=== PATIENT | male | born 1990 | race Caucasian/White ===

== ENCOUNTER 2016-12-28 15:20 | Emergency (ER) | payer MEDICAID, OTHER ==
[~2016-12-28] VITALS: Ht 175.3 cm; Wt 85.0 kg
[~2016-12-28 15:20] MED LIST: DICL75 PO; Z.0.NO CURRENT MEDS
[2016-12-28 15:30] VITALS: BP 124/88; PULSE 91; RESP 16; TEMP 98.4; O2SAT 94
--- NOTE | 2016-12-28 16:47 | PD ---
HPI Chief Complaint: Skin Problem Time Seen by Provider: 16:47 Travel History International Travel<30 days: No Contact w/Intl Traveler<30days: No Traveled to known affect area: No History of Present Illness HPI 26-year-old male presents to the ED for evaluation 3 day history of right-sided burning, pustular rash. Patient states the rash was preceded by one week history of burning pain in the area. He denies fevers, chills. He endorses previous history of varicella infection. Denies history of oral/genital herpes. Denies fevers, chills, chest pain, shortness breath, abdominal pain, nausea, vomiting, dysuria, penile discharge, back pain. No treatment attempted at home. PFSH Past Medical History Medical History: Denies Significant Hx Tetanus Vaccination: > 5 Years Influenza Vaccination: No Past Surgical History Surgical History: No Previous Surgery Social History Alcohol Use: Yes (SOCIAL) Tobacco Use: No Substance Use: No Allergies-Medications (Allergen,Severity, Reaction): Coded Allergies: No Known Allergies (Unverified , 12/28/16) Reported Meds & Prescriptions Reported Meds & Active Scripts Active Ibuprofen 800 Mg Tab 800 Mg PO Q8H PRN Acyclovir 800 Mg Tab 800 Mg PO 5 TIMES A DAY 7 Days Review of Systems Except as stated in HPI: all other systems reviewed are Neg Physical Exam Narrative GENERAL: Well-nourished, well-developed patient. SKIN: Warm and dry. Patient has a vesicular erythematous rash distributed in the L1 distribution over the right groin, hip and buttocks consistent with shingles HEAD: Normocephalic. EYES: No scleral icterus. No injection or drainage. NECK: Supple, trachea midline. No JVD or lymphadenopathy. CARDIOVASCULAR: Regular rate and rhythm without murmurs, gallops, or rubs. RESPIRATORY: Breath sounds equal bilaterally. No accessory muscle use. GASTROINTESTINAL: Abdomen soft, non-tender, nondistended. MUSCULOSKELETAL: No cyanosis, or edema. BACK: Nontender without obvious deformity. No CVA tenderness. Data Data Last Documented VS Vital Signs Date Time Temp Pulse Resp B/P Pulse Ox O2 Delivery O2 Flow Rate FiO2 12/28/16 15:30 98.4 91 16 124/88 94 MDM Medical Decision Making Medical Screen Exam Complete: Yes Emergency Medical Condition: Yes Differential Diagnosis Contact dermatitis versus drug rash versus herpes zoster versus other Narrative Course 26-year-old male presents to the ED for evaluation 3 day history of right-sided burning, pustular rash, preceded by one week history of burning pain. He denies fevers, chills. He endorses previous history of varicella infection. Vitals reviewed. Physical exam reveals a vesicular erythematous rash in the S1 distribution of the right hip, consistent with herpes zoster. Patient was prescribed acyclovir 5 times a day for the next 7 days and short course of anti- inflammatory medications. He is instructed to keep the rash clean, dry and covered, wash hands before and after touching the rash, follow-up with his primary care provider for further evaluation. He indicated understanding of the instructions and is amenable to the plan of care. This patient is stable and discharged home. Diagnosis Primary Impression: Herpes zoster Qualified Code: B02.9 - Herpes zoster without complication Referrals: Primary Care Physician Patient Instructions: General Instructions, Shingles (ED) Additional Instructions: Rest, hydrate. Take acyclovir as prescribed. 800 mg ibuprofen up to 3 times a day as needed for pain. Avoid hot showers as this can make pain and itching worse. Follow up with the primary care provider. Return to the ED for any urgent or emergent medical condition. Med/Other Pt SpecificInfo: Prescription(s) given Scripts Ibuprofen 800 Mg [id number] Mg PO Q8H PRN (Pain/Inflammation) #20 TAB Ref 0 Prov:Ritesh Mayers MD 12/28/16 Acyclovir 800 Mg [id number] Mg PO 5 TIMES A DAY 7 Days Ref 0 Prov:Ritesh Mayers MD 12/28/16 Disposition: 01 DISCHARGE HOME Condition: Stable Radha Alarcon Dec 28, 2016 16:47
[2016-12-28] MEDS ORDERED: ACYC800T PO (17:00)
[2016-12-28] MEDS ORDERED: IBUP800T23 PO (17:00)
== END 2016-12-28 17:14 | disposition home or self-care (01) ==
LOC: PHEFT 15:20
DX: B02.9 Zoster without complications (principal)
CPT/HCPCS: 99282